=== PATIENT | male | born 1965 | race Caucasian/White ===

== ENCOUNTER 2021-02-06 07:26 | Day surgery (SDC) | payer OTHER ==
[2021-02-01 18:55] VITALS: BMI 30.2
[2021-02-06 07:49] VITALS: TEMP 98.2
[2021-02-06] MEDS ORDERED: PROPOFOL 20 ML ONE ×3 (07:50)
[2021-02-06] MEDS ORDERED: LIDOCAINE HCL/PF 2% SDV 5ML VIAL ONE (07:50)
[2021-02-06 09:57] VITALS: BP 114/58
[2021-02-06 10:05] VITALS: PULSE 72
== END 2021-02-06 10:05 | disposition home or self-care (01) ==
LOC: FASU-ENDO 07:26
PROVIDERS: ATTEND Internal Medicine Gastroenterology
PROC: 0DJD8ZZ Inspection of Lower Intestinal Tract, Via Natural or Artificial Opening Endoscopic (ICD-10-PCS; principal; 2021-02-06 09:03)
DX: Z09 Encounter for follow-up examination after completed treatment for conditions other than malignant neoplasm (principal); Z86.010 Personal history of colon polyps; Z80.0 Family history of malignant neoplasm of digestive organs
CPT/HCPCS: 82962